=== PATIENT | female | born 1975 | race Caucasian/White ===

== ENCOUNTER 2017-08-03 17:31 | Inpatient (IN) | payer OTHER ==
[2017-08-03] MEDS ORDERED: Sodium Chloride 0.9% 1,000 ML IV STA (18:03)
--- NOTE | 2017-08-03 18:08 | ED PDOC ---
HPI: Psych/Substance Abuse Time Seen by Provider: 08/03/17 17:54 Chief Complaint (Nursing): Psychiatric Evaluation History Per: Patient Onset/Duration Of Symptoms: Unknown Current Symptoms Are (Timing): Still Present Suicide/Self Injury Attempted (Context): None Modifying Factor(s): None Severity: Moderate Associated Symptoms: Paranoia Additional Complaint(s): Feels like worms are coming out of her rectum assoc with lower abd pain. Denies NVD. No rectal bleeding. Has been trying to remove the worms from her rectum with her hands. Past Medical History Vital Signs: Last Vital Signs Temp 99.1 F 08/03/17 17:44 Pulse 125 H 08/03/17 17:44 Resp 20 08/03/17 17:44 BP 143/109 H 08/03/17 17:44 Pulse Ox - Medical History PMH: Bipolar Disorder Denies: Diabetes, Hepatitis, HIV, HTN, Seizures, Sexually Transmitted Disease - Family History Family History: States: Unknown Family Hx - Home Medications Home Medications: Ambulatory Orders Medication Instructions Recorded Unobtainable [Unobtainable] 06/17/14 - Allergies Allergies/Adverse Reactions: Allergies Allergy/AdvReac Type Severity Reaction Status Date / Time novacaine Allergy RASH Uncoded 08/03/17 17:48 Review of Systems ROS Statement: Except As Marked, All Systems Reviewed And Found Negative Constitutional: Negative for: Fever Gastrointestinal: Positive for: Abdominal Pain. Negative for: Vomiting, Diarrhea, Hematochezia Psych: Positive for: Psychosis Physical Exam - Reviewed Nursing Documentation Reviewed: Yes Vital Signs Reviewed: Yes - Physical Exam Appears: Positive for: Non-toxic, No Acute Distress Head Exam: Positive for: ATRAUMATIC, NORMAL INSPECTION, NORMOCEPHALIC Skin: Positive for: Normal Color, Warm, DRY Eye Exam: Positive for: EOMI, Normal appearance, PERRL ENT: Positive for: Other (Mucous membranes dry) Neck: Positive for: Normal, Painless ROM Cardiovascular/Chest: Positive for: Regular Rate, Rhythm Respiratory: Positive for: CNT, Normal Breath Sounds Gastrointestinal/Abdominal: Positive for: Normal Exam, Bowel Sounds, Soft Back: Positive for: Normal Inspection Rectal: Positive for: Other (No masses, no foreign body, no bleeding) Extremity: Positive for: Normal ROM Neurologic/Psych: Positive for: Alert, Oriented Disposition - Clinical Impression Clinical Impression: Bipolar 1 disorder - Patient ED Disposition Is Patient to be Admitted: Transfer of Care - Disposition Disposition: Transfer of Care Disposition Time: 19:03 Condition: FAIR Forms: [employer] (Welsh) Patient Signed Over To: Wyatt Knowles
--- NOTE | 2017-08-03 19:39 | ED PDOC ---
- Laboratory Results Result Diagrams: 08/03/17 20:56 08/03/17 20:56 Medical Decision Making Medical Decision Making: Time: 1899 --Patient was endorsed from Dr. Robison to me. --Pending crisis, labs, and reevaluation. Time: 2034 --Patient was evaluated by crisis and will be admitted for further treatment and stabilization and diagnosed for schizophrenia. --Pt stable for psychiatric admission. Time: 2048 --Admit to hospital routine: as inpatient in adult psychiatry for schizophrenia under the care of Dr. Melvin Foreman MD. Scribe Attestation: Documented by Jessica Lou, acting as a scribe for Wyatt Knowles MD. Provider Scribe Attestation: All medical record entries made by the Scribe were at my direction and personally dictated by me. I have reviewed the chart and agree that the record accurately reflects my personal performance of the history, physical exam, medical decision making, and the department course for this patient. I have also personally directed, reviewed, and agree with the discharge instructions and disposition. Disposition - Clinical Impression Clinical Impression: Bipolar disorder - POA Present On Arrival: None - Disposition Disposition: Admitted as In-Patient Disposition Time: 20:49 Condition: FAIR
[2017-08-03 21:02] LABS: BASO % 0.7 % (0.0-2.0); EOS % 0.6 % (0.0-4.0); HEMOGLOBIN 13.8 g/dL (12.0-16.0); LYMPH # 0.6 K/uL (1.0-4.3); LYMPH % 10.7 % (20.0-40.0); MEAN CELL VOLUME 85.2 fl (81.0-99.0); MEAN CORPUSCULAR HEMOGLOBIN 28.7 pg (27.0-31.0); MEAN CORPUSCULAR HGB CONC 33.7 g/dL (33.0-37.0); MEAN PLATELET VOLUME 7.4 fl (7.2-11.7); MONO # 0.4 K/uL (0.0-0.8); MONO % 6.4 % (0.0-10.0); NEUT # 4.9 K/uL (1.8-7.0); NEUT % 81.6 % (50.0-75.0); NRBC % 0.1 % (0.0-0.0); RBC 4.82 Mil/uL (3.80-5.20); RED CELL DISTRIBUTION WIDTH 15.1 % (11.5-14.5)
[2017-08-03 21:11] LABS: ALB/GLOB RATIO 1.2 (1.0-2.1); ALBUMIN 4.2 g/dL (3.5-5.0); ALT/SGPT 25 U/L (9-52); AST/SGOT 43 U/L (14-36); BLOOD UREA NITROGEN 24 mg/dl (7-17); CALCIUM 9.9 mg/dL (8.4-10.2); GFR AFRICAN-AMERICAN > 60; GFR NON-AFRICAN AMERICAN > 60
[2017-08-03 22:27] VITALS: O2SAT 99
[2017-08-04 00:18] LABS: BARBITURATES, UR NEGATIVE (NEGATIVE); BENZODIAZEPINES, UR NEGATIVE (NEGATIVE); OPIATES, UR NEGATIVE (NEGATIVE); PHENCYCLIDINE, UR NEGATIVE (NEGATIVE)
[2017-08-04] MEDS ORDERED: Magnesium Hydroxide Susp 30 ml UD PO PRN (00:45)
[2017-08-04] MEDS ORDERED: Alum-Mag Hydrox-Simethicone Susp (30 mL) PO PRN (00:45)
[2017-08-04] MEDS ORDERED: DiphenhydrAMINE 50 mg/ml Inj IM PRN ×2 (00:45→01:29)
--- NOTE | 2017-08-04 04:47 | PCM.BM ---
<Mohan North - Last Filed: 08/04/17 04:45> Treatment Plan Problems - Problems identified on initial assessmt Delusions Date Initiated: 08/04/17 (t) Time Initiated: 04:46 Assessment reference: NA Status: Active Alteration in emotional status Date Initiated: 08/04/17 Time Initiated: 04:46 Assessment reference: NA Status: Active Treatment assets and liabiliti Patient Assests: educated Patient Liabilities: live alone, poor support system, dietary restrictions, other (acute psychosis affecting food/fluid intake) - Milieu Protocol Maintain good personal hygiene: every other day Encourage regular showers, every shift Remind patient to perform daily oral care, every shift Assist patient to perform ADL's (requires assistance) Conduct patient checks and document Observation sheet: 1:1 Maintain personal safety: every shift Educate patient to report safety concerns to staff, every shift Monitor environment for contraband/sharps Medication safety: Monitor for expected outcome, potential side effects: every shift, Assess barriers to learning: every shift, Assess readiness for medication education: every shift <Prerna Encinas - Last Filed: 08/08/17 12:08> - Diagnosis (1) Schizophrenia Status: Acute Interventions: Medication management, Individual and group therapy, Psychoeducation 08/08/17 12:08 <Katelyn Banuelos - Last Filed: 08/08/17 16:10> Family Contact Family involvement: Patient does not wish Family/SO involvement Family contact: Patient declines to allow family contact at present Family contact comment: Pt refusing to provide collateral information. - Goals for Treatment Patient goals for treatment: Pt to be encouraged to attend activity and clinical groups 3-5x per week to decrease symptoms of paranoia, delusions and employ reality testing. Pt to be encouraged to participate in group milieu to develop coping skills to reduce psychiatric hospitalizations and further decompensation. Coordinate discharge resources needs by providing referral for psychiatric treatment follow up in the community. Discharge/Continuing Care - Education Needs Education Needs: Patient Medication, Patient Diagnosis/Disease Process, Patient Coping Skills, Patient Anger Management skills, Patient Placement options, Patient Community resources, Patient Uses of Medical Equipment, Patient Health Practices/Safety, Patient Personal Hygiene/Grooming, Patient Aftercare Safety Plan - Discharge Discharge Criteria: Tolerates medication w/o severe side effects, Free of paranoid thoughts, Normal sleep pattern, Ability to care for self, Reduction of target symptoms Discharge to:: Home, With Family - Additional Comments 08/08/17 15:48 Pt seen and discussed in team meeting. Reason for admission reviewed and discussed. Pt reported at home she was not eating, not drinking, not sleeping, and "felt like something was coming out of my butt." Pt reported she believes she saw warms coming out of her rectum. Pt reported this has been happening since March 2017. When asked what happened in March 2017 pt stated "everything just changed." Pt was guarded and evasive with her responses. Pt reported seeing her father then and "felt like he didn't like me very much" "more than the others." Pt also reported that in March 2017 she stopped working. 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 Pt reported she abruptly quit her job and has been living off her savings since then. Pt reported that she is unsure if her rent has been paid to date or not. Pt reported significant weight loss since March 2017. Pt reported she was 115lbs then and currently pt weights 82lbs. Pt reported hx of psychiatric treatment " on and off" but nothing current. Pt's medications reviewed and discussed.Pt's social and emotional support reviewed. Pt reported she would like "to hold off" on jingle writer contacting her family. Pt refused to sign release form for family. Treatment plan reviewed and discussed with pt. Pt refused to sign team attendance sheet stating "I would like to hold off on it." - Treatment Team Participation Discussed with Family/SO: No Was Patient/Family/SO present at Treatment Team Meeting: Yes
--- NOTE | 2017-08-04 08:36 | RAD ---
HISTORY: psych clearance COMPARISON: No prior. FINDINGS: LUNGS: No active pulmonary disease. PLEURA: No significant pleural effusion identified, no pneumothorax apparent. CARDIOVASCULAR: Normal. OSSEOUS STRUCTURES: No significant abnormalities. VISUALIZED UPPER ABDOMEN: Normal. OTHER FINDINGS: None. IMPRESSION: No active disease.
--- NOTE | 2017-08-04 10:34 | CARD ---
APPROVED REPORT EKG Measurement Heart [id number] <Conclusion> Sinus tachycardia Possible Left atrial enlargement Nonspecific T wave abnormality Abnormal ECG
--- NOTE | 2017-08-04 20:19 | CP.PCM.CON ---
History of Present Illness - History of Present Illness History of Present Illness: Patient severely psychotic and uncooperative. Refused to talk with and refused exam. Past Patient History - Tetanus Immunizations Tetanus Immunization: Unknown - Past Social History Smoking Status: Unknown If Ever Smoked - CARDIAC Hx Cardiac Disorders: No (denied) - PULMONARY Hx Respiratory Disorders: No (denied) - NEUROLOGICAL Hx Neurological Disorder: No (denied) - HEENT Hx HEENT Problems: No (denied) - RENAL Hx Chronic Kidney Disease: No (denied) - ENDOCRINE/METABOLIC Hx Endocrine Disorders: No (denied) - HEMATOLOGICAL/ONCOLOGICAL Hx Blood Disorders: No (denied) - INTEGUMENTARY Hx Dermatological Problems: Yes - MUSCULOSKELETAL/RHEUMATOLOGICAL Hx Musculoskeletal Disorders: No (denied) - GASTROINTESTINAL Hx Gastrointestinal Disorders: Yes Hx Diarrhea: Yes (soft stool) Other/Comment: fecal incontinence,and, she is placing her fingers into her rectum and then smearing feces on upper lip to smell(?) then placing feces into mouth. She denied afer she was observed doing this. - GENITOURINARY/GYNECOLOGICAL Hx Genitourinary Disorders: No (denied) - PSYCHIATRIC Hx Psychophysiologic Disorder: Yes - SURGICAL HISTORY Hx Surgeries: No (denied) - ANESTHESIA Hx Anesthesia: No Hx Anesthesia Reactions: No Hx Malignant Hyperthermia: No Meds Allergies/Adverse Reactions: Allergies Allergy/AdvReac Type Severity Reaction Status Date / Time novacaine Allergy RASH Uncoded 08/03/17 17:48 - Medications Medications: Current Medications Acetaminophen (Tylenol 325mg Tab) 650 mg PO Q4 PRN PRN Reason: T>101;headache;Pain 1-7 Al Hydrox/Mg Hydrox/Simethicone (Maalox Plus 30 Ml) 30 ml PO Q4 PRN PRN Reason: Dyspepsia Diphenhydramine HCl (Benadryl) 25 mg IM Q6 PRN PRN Reason: Extrapyramidal S/S Unable PO Last Admin: 08/04/17 01:45 Dose: 25 mg Diphenhydramine HCl (Benadryl) 25 mg PO Q6 PRN PRN Reason: Extrapyramidal Symptoms Haloperidol (Haldol) 2 mg PO Q4 PRN PRN Reason: Agitation Haloperidol Lactate (Haldol) 2 mg IM Q4 PRN PRN Reason: Agitation, Unable to Take PO Last Admin: 08/04/17 01:45 Dose: 2 mg Lorazepam (Ativan) 1 mg IM Q4 PRN PRN Reason: Anxiety/Agitation,Unable PO Last Admin: 08/04/17 01:45 Dose: 1 mg Lorazepam (Ativan) 1 mg PO Q4 PRN PRN Reason: Anxiety/Agitation Magnesium Hydroxide (Milk Of Magnesia) 30 ml PO HS PRN PRN Reason: Constipation Results - Vital Signs Recent Vital Signs: Last Vital Signs Temp 97.5 F L 08/04/17 17:00 Pulse 122 H 08/04/17 17:00 Resp 20 08/04/17 17:00 BP 108/74 08/04/17 17:00 Pulse Ox 99 08/03/17 22:27 - Labs Result Diagrams: 08/03/17 20:56 08/03/17 20:56 Labs: Laboratory Results - last 24 hr 08/03/17 08/03/17 08/03/17 20:40 20:56 20:56 WBC 6.0 RBC 4.82 Hgb 13.8 Hct 41.1 MCV 85.2 MCH 28.7 MCHC 33.7 RDW 15.1 H Plt Count 292 MPV 7.4 Neut % (Auto) 81.6 H Lymph % (Auto) 10.7 L [place] % (Auto) 6.4 Eos % (Auto) 0.6 Baso % (Auto) 0.7 Neut # (Auto) 4.9 Lymph # (Auto) 0.6 L [place] # (Auto) 0.4 Eos # (Auto) 0.0 Baso # (Auto) 0.0 Sodium 152 H Potassium 4.1 Chloride 108 H Carbon Dioxide 24 Anion Gap 24 H BUN 24 H Creatinine 0.9 Est GFR ( Amer) > 60 Est GFR (Non-Af Amer) > 60 POC Glucose (mg/dL) 108 Random Glucose 116 H Calcium 9.9 Total Bilirubin 1.7 H AST 43 H ALT 25 Alkaline Phosphatase 71 Total Protein 7.6 Albumin 4.2 Globulin 3.4 Albumin/Globulin Ratio 1.2 Urine Opiates Screen Urine Methadone Screen Ur Barbiturates Screen Ur Phencyclidine Scrn Ur Amphetamines Screen U Benzodiazepines Scrn U Oth Cocaine Metabols U Cannabinoids Screen Alcohol, Quantitative < 10 08/03/17 21:55 WBC RBC Hgb Hct MCV MCH MCHC RDW Plt Count MPV Neut % (Auto) Lymph % (Auto) [place] % (Auto) Eos % (Auto) Baso % (Auto) Neut # (Auto) Lymph # (Auto) [place] # (Auto) Eos # (Auto) Baso # (Auto) Sodium Potassium Chloride Carbon Dioxide Anion Gap BUN Creatinine Est GFR ( Amer) Est GFR (Non-Af Amer) POC Glucose (mg/dL) Random Glucose Calcium Total Bilirubin AST ALT Alkaline Phosphatase Total Protein Albumin Globulin Albumin/Globulin Ratio Urine Opiates Screen Negative Urine Methadone Screen Negative Ur Barbiturates Screen Negative Ur Phencyclidine Scrn Negative Ur Amphetamines Screen Negative U Benzodiazepines Scrn Negative U Oth Cocaine Metabols Negative U Cannabinoids Screen Negative Alcohol, Quantitative
--- NOTE | 2017-08-05 18:22 | PCM.PSYCH ---
Initial Psychiatric Evaluation - Initial Psychiatric Evaluation Chief Complaint (in patient's own words): late note for [id number] pt admitted to 3 via er-pt presented to [facility] believing that there are worms in her recum and was trying to dig them out , pulling stool out presented to [facility] required to have staff assist with bathing, appetite . rrequires total care Patient's Reaction to Hospitalization: voluntary admission History of Present Illness and Precipitating Events: presented to er with changes in behavior believing that worms were in rectum and was digging stool out Current Medications: Active Medications Generic Name Dose Route Start Last Admin Trade Name Freq PRN Reason Stop Dose Admin Acetaminophen 650 mg 08/04/17 00:45 Tylenol 325mg Tab PO Q4 PRN T>101;headache;Pain 1-7 Al Hydrox/Mg Hydrox/Simethicone 30 ml 08/04/17 00:45 Maalox Plus 30 Ml PO Q4 PRN Dyspepsia Diphenhydramine HCl 25 mg 08/04/17 01:29 08/04/17 01:45 Benadryl IM 25 mg Q6 PRN Administration Extrapyramidal S/S Unable PO Diphenhydramine HCl 25 mg 08/04/17 01:29 Benadryl PO Q6 PRN Extrapyramidal Symptoms Haloperidol 2 mg 08/04/17 01:29 Haldol PO Q4 PRN Agitation Haloperidol Lactate 2 mg 08/04/17 01:29 08/04/17 01:45 Haldol IM 2 mg Q4 PRN Administration Agitation, Unable to Take PO Lorazepam 1 mg 08/04/17 01:29 08/04/17 01:45 Ativan IM 1 mg Q4 PRN Administration Anxiety/Agitation,Unable PO Lorazepam 1 mg 08/04/17 01:29 Ativan PO Q4 PRN Anxiety/Agitation Magnesium Hydroxide 30 ml 08/04/17 00:45 Milk Of Magnesia PO HS PRN Constipation Past Psychiatric History - Past Psychiatric History Pertinent Medical Hx (Current Medical&Sleep Prob, Allergies): Allergies Allergy/AdvReac Type Severity Reaction Status Date / Time novacaine Allergy RASH Uncoded 08/03/17 17:48 Unobtainable [Unobtainable] 06/17/14 Review of Systems - Psychiatric Psychiatric: Abnormal Sleep Pattern Additional comments: delusions paranoia Mental Status Examination - Personal Presentation Personal Presentation: Looks older than stated age - Affect Affect: Constricted - Motor Activity Motor Activity: Psychomotor Retardation - Reliability in Providing Information Reliability in Providing Information: Poor, due to alteration in thoughts - Formal Thought Process Formal Thought Process: Delusions, Paranoia - Cognitive Functions Judgement: Imparied, as evidence by: Other - Risk Risk: Self-mutilation, Diminished functioning - Strength & Assets Inventory Additional comments: signed in - Limitations Additional comments: paranoia self injurous behavior DSM 5 DX - DSM 5 DSM 5 Diagnosis: schizophrenia paranoid type - Recommended/Plan of Treatment Treatment Recommendations and Plan of Treatment: admission per attending vital signs and visual assessment per protocol and per status\ hospitalist consult vital signs per protocol-pt receiving prn haldol will attempt tomorrow to gain further information if pt is more talkative discharge planning in progress Projected ELOS: 5-7 days Discharge Plan and Discharge Criteria: guarded - Smoking Cessation Smoking Cessation Initiated: No Reason for not providing: no indication at time of admission
--- NOTE | 2017-08-05 18:33 | PCM.PYCHPN ---
Psychiatric Progress Note - Psychiatric Progress Note Patient seen today, length of contact: chart reviewed case discussed with team Patient Chief Complaint: pt requires assistance with adls requires some assistance with ambulation, pt is paranoid believing that staff is putting urine medicine, irritable Problems Identified/Issues Discussed: alteration in cognition Medical Problems: per chart Diagnostic Results: per psychiatry per medicine per nursing per social work per recreational therapy DSM 5 Symptoms Update: alteration in cognition alteration in self care Medication Change: Yes (risp mtab 1mg po am and 2mg po hs) Medical Record Reviewed: Yes Consults ordered or reviewed: pt being followed by hospitalist Mental Status Examination - Cognitive Function Orientation: Person Memory: Impaired Attention: Poor Concentration: Poor Association: Loose Fund of Knowledge: Poor Decription of patient's judgement and insights: poor - Affect Affect: Constricted - Formal Thought Process Formal Thought Process: Delusions, Paranoia - Homicidal Ideation Homicidal Ideation: No Goal/Treatment Plan - Goal/Treatment Plan Progress Toward Problem(s) and Goals/Treatment Plan: admission per attending vital signs and visual assessment per protocol and per status\ hospitalist consult risperdal mtab in am 1mg and 2mg po hs-attempt exposure if tolerated possible long acting injectables will attempt tomorrow to gain further information if pt is more talkative discharge planning in progress Estimated Date of D/C: 08/13/17 - Smoking Cessation Smoking Cessation Initiated: No Reason for not providing: pt defers
[2017-08-05] MEDS: Risperidone M TAB 2 MG PO SCH (23:30)
[2017-08-06] MEDS: Risperidone M tab 1 MG PO SCH (08:59)
[2017-08-06 10:01] LABS: HEMOGLOBIN 12.8 g/dL (12.0-16.0); MEAN CELL VOLUME 85.1 fl (81.0-99.0); MEAN CORPUSCULAR HEMOGLOBIN 28.9 pg (27.0-31.0); RBC 4.43 Mil/uL (3.80-5.20); RED CELL DISTRIBUTION WIDTH 15.3 % (11.5-14.5); WHITE BLOOD COUNT 5.1 K/uL (4.8-10.8)
[2017-08-06 10:29] LABS: ALB/GLOB RATIO 1.1 (1.0-2.1); ALBUMIN 3.6 g/dL (3.5-5.0); ALT/SGPT 29 U/L (9-52); AST/SGOT 50 U/L (14-36); BLOOD UREA NITROGEN 14 mg/dl (7-17); CALCIUM 9.2 mg/dL (8.4-10.2); GFR AFRICAN-AMERICAN > 60; GFR NON-AFRICAN AMERICAN > 60; HDL CHOLESTEROL 45 MG/DL (30-70)
[2017-08-06 10:32] LABS: LDL CHOLESTEROL 100 mg/dL (0-129)
[2017-08-06 10:35] LABS: T3 UPTAKE 40.3 % (23.0-41.0); T4 9.78 ug/dl (5.5-11.0)
--- NOTE | 2017-08-06 13:24 | PCM.PYCHPN ---
Psychiatric Progress Note - Psychiatric Progress Note Patient seen today, length of contact: Patient evaluated, case discussed with team, chart reviewed Patient Chief Complaint: "I'm sensitive." Problems Identified/Issues Discussed: Patient reports that she is concerned about the products used in the hospital and has various somatic concerns about her body being too sensitive to lotions and soaps. She continues to be concerned about having a body worm, but did not want to discuss it. She has to be encouraged by staff to eat and continues to have a poor appetite. She has thought blocking at times and seems to have difficulty with concentrating during the conversation. Medication Change: Yes (Risperdal increased to 1 mg PO AM/ 2 mg PO HS) Medical Record Reviewed: Yes Consults ordered or reviewed: Medicine consult Mental Status Examination - Cognitive Function Orientation: Person, Place, Situation Memory: Impaired Attention: Poor Concentration: Poor Association: WNL Fund of Knowledge: WN Decription of patient's judgement and insights: Poor I/J - Mood Mood: Anxious - Affect Affect: Constricted - Speech Speech: Soft - Formal Thought Process Formal Thought Process: Delusions, Paranoia Psychotic Thoughts and Behaviors: +Delusions/paranoia/somatic preoccupation - Suicidal Ideation Suicidal Ideation: No - Homicidal Ideation Homicidal Ideation: No Goal/Treatment Plan - Goal/Treatment Plan Need for Continued Stay: Remain at risks for inpatient hospitalization, Discharge may exacerbated symptoms, Severe functional impairment Progress Toward Problem(s) and Goals/Treatment Plan: Schizophrenia -Increase Risperdal to 1 mg PO AM/ 2 mg PO HS -Continue 1:1 for safety -Individual and group therapy -Obtain collateral history -Psychoeducation -Dietitian referral -Disposition planning Estimated Date of D/C: 08/13/17
[2017-08-06] MEDS: Risperidone M TAB 2 MG PO SCH (21:24)
[2017-08-07] MEDS: Risperidone M tab 1 MG PO SCH (08:42)
--- NOTE | 2017-08-07 08:56 | PCM.PYCHPN ---
Psychiatric Progress Note - Psychiatric Progress Note Patient seen today, length of contact: Patient evaluated, case discussed with team, chart reviewed Patient Chief Complaint: Patient unwilling to talk w/ ad writer at this time due to acute psychosis Problems Identified/Issues Discussed: Patient continues to be acutely psychotic and bizarre. Today she is refusing to talk to the ad writer or make eye contact. She just shakes her head "yes" or "no" at times. She continues to need 1:1 for safety. Patient is encouraged to eat and is helped by staff w/ meals. She also has to be encouraged to shower. Medication Change: Yes (Increase Risperdal to 2 mg PO Q12, starting tomorrow AM) Medical Record Reviewed: Yes Consults ordered or reviewed: Medicine consult, Dietitian referral, PT Mental Status Examination - Cognitive Function Orientation: Person, Place, Situation Memory: Impaired Attention: Poor Concentration: Poor Association: WNL Fund of Knowledge: WNL Decription of patient's judgement and insights: Poor I/J - Mood Mood: Anxious - Affect Affect: Constricted - Speech Speech: Soft - Formal Thought Process Formal Thought Process: Delusions, Paranoia Psychotic Thoughts and Behaviors: +Delusions/paranoia/somatic preoccupation - Suicidal Ideation Suicidal Ideation: No - Homicidal Ideation Homicidal Ideation: No Goal/Treatment Plan - Goal/Treatment Plan Need for Continued Stay: Remain at risks for inpatient hospitalization, Discharge may exacerbated symptoms, Severe functional impairment Progress Toward Problem(s) and Goals/Treatment Plan: Schizophrenia; patient needs acute inpatient hospitalization for treatment and safety -Increase Risperdal to 2 mg PO Q12 hr starting tomorrow AM -Continue 1:1 for safety -Individual and group therapy -Obtain collateral history -Psychoeducation -Dietitian referral -Physical Therapy -Disposition planning Estimated Date of D/C: 08/14/17
[2017-08-07 12:36] VITALS: BMI 16.1
[2017-08-07] MEDS ORDERED: Risperidone M TAB 2 MG PO SCH (21:00)
--- NOTE | 2017-08-08 12:11 | PCM.PYCHPN ---
Psychiatric Progress Note - Psychiatric Progress Note Patient seen today, length of contact: Patient evaluated, case discussed with team, chart reviewed Patient Chief Complaint: "I was having delusions." Problems Identified/Issues Discussed: Patient is more talkative. She eats when encouraged by staff. She also took a shower today with staff encouragement. She has improved insight and is able to state that she has been delusional in the past. She continues to be preoccupied about having a worm in her body. She is aware that she has lost a significant amount of weight. Medication Change: Yes (Rispedal changed to 3 mg PO HS) Medical Record Reviewed: Yes Consults ordered or reviewed: Medicine consult, Dietitian referral, PT Mental Status Examination - Cognitive Function Orientation: Person, Place, Situation, Time Memory: Impaired Attention: WNL Concentration: WNL Association: WNL Fund of Knowledge: WN Decription of patient's judgement and insights: Improving I/J - Mood Mood: Anxious - Affect Affect: Constricted - Speech Speech: Soft - Formal Thought Process Formal Thought Process: Delusions, Paranoia Psychotic Thoughts and Behaviors: +Delusions/paranoia/somatic preoccupation - Suicidal Ideation Suicidal Ideation: No - Homicidal Ideation Homicidal Ideation: No Goal/Treatment Plan - Goal/Treatment Plan Need for Continued Stay: Remain at risks for inpatient hospitalization, Discharge may exacerbated symptoms, Severe functional impairment Progress Toward Problem(s) and Goals/Treatment Plan: Schizophrenia; patient needs acute inpatient hospitalization for treatment and safety -Risperdal 3 mg PO HS -Continue 1:1 for safety -Individual and group therapy -Obtain collateral history -Psychoeducation -Dietitian referral -Physical Therapy -Disposition planning Estimated Date of D/C: 08/14/17
--- NOTE | 2017-08-09 10:37 | PCM.PYCHPN ---
Psychiatric Progress Note - Psychiatric Progress Note Patient seen today, length of contact: Patient evaluated, case discussed with team, chart reviewed Patient Chief Complaint: "I was having delusions." Problems Identified/Issues Discussed: Patient continues to be psychotic/ delusions. She is unwilling to talk with the fiction and nonfiction prose writer this morning for unclear reasons, likely secondary to acute psychosis. She will not eat unless encouraged and fed by staff. Patient is being provided food as well as supplements. Medication Change: Yes (Increase Risperdal to 4 mg PO HS) Medical Record Reviewed: Yes Consults ordered or reviewed: Medicine consult, Dietitian referral, PT Mental Status Examination - Cognitive Function Orientation: Person, Place, Situation, Time Memory: Impaired Attention: WNL Concentration: WNL Association: WNL Fund of Knowledge: [facility] Decription of patient's judgement and insights: Poor I/J - Mood Mood: Anxious - Affect Affect: Constricted - Speech Speech: Soft - Formal Thought Process Formal Thought Process: Delusions, Paranoia Psychotic Thoughts and Behaviors: +Delusions/paranoia/somatic preoccupation - Suicidal Ideation Suicidal Ideation: No - Homicidal Ideation Homicidal Ideation: No Goal/Treatment Plan - Goal/Treatment Plan Need for Continued Stay: Remain at risks for inpatient hospitalization, Discharge may exacerbated symptoms, Severe functional impairment Progress Toward Problem(s) and Goals/Treatment Plan: Schizophrenia; patient needs acute inpatient hospitalization for treatment and safety -Increase Risperdal to 4 mg PO HS -Continue 1:1 for safety -Individual and group therapy -Obtain collateral history -Psychoeducation -Dietitian referral -Physical Therapy -Disposition planning Estimated Date of D/C: 08/15/17
[2017-08-09] MEDS: Risperidone M TAB 2 MG PO SCH (21:19)
--- NOTE | 2017-08-10 13:02 | PCM.PYCHPN ---
Psychiatric Progress Note - Psychiatric Progress Note Patient seen today, length of contact: Patient evaluated, case discussed with team, chart reviewed Patient Chief Complaint: "I was having delusions." Problems Identified/Issues Discussed: Patient continues to be psychotic/ delusional/ paranoid. She is unwilling to talk with the doctor again, but does make eye contact and sometimes uses hand gestures. She will not eat unless encouraged and fed by staff. Medication Change: No Medical Record Reviewed: Yes Consults ordered or reviewed: Medicine consult, Dietitian referral, PT Mental Status Examination - Cognitive Function Orientation: Person, Place, Situation, Time Memory: Impaired Attention: WNL Concentration: WNL Association: WNL Fund of Knowledge: [facility] Decription of patient's judgement and insights: Poor I/J - Mood Mood: Anxious - Affect Affect: Constricted - Speech Speech: Soft - Formal Thought Process Formal Thought Process: Delusions, Paranoia Psychotic Thoughts and Behaviors: +Delusions/paranoia/somatic preoccupation - Suicidal Ideation Suicidal Ideation: No - Homicidal Ideation Homicidal Ideation: No Goal/Treatment Plan - Goal/Treatment Plan Need for Continued Stay: Remain at risks for inpatient hospitalization, Discharge may exacerbated symptoms, Severe functional impairment Progress Toward Problem(s) and Goals/Treatment Plan: Schizophrenia; patient needs acute inpatient hospitalization for treatment and safety -Continue Risperdal 4 mg PO HS -Continue 1:1 for safety -Individual and group therapy -Obtain collateral history -Psychoeducation -Dietitian referral -Physical Therapy -Disposition planning Estimated Date of D/C: 08/17/17
[2017-08-10] MEDS: Risperidone M TAB 2 MG PO SCH (21:08)
[2017-08-11] MEDS ORDERED: risperiDONE Consta 25mg/2ml Syringe IM ONE (09:00)
--- NOTE | 2017-08-11 09:19 | PCM.PYCHPN ---
Psychiatric Progress Note - Psychiatric Progress Note Patient seen today, length of contact: Patient evaluated, case discussed with team, chart reviewed Patient Chief Complaint: "I was having delusions." Problems Identified/Issues Discussed: Patient continues to be psychotic/ delusional/ paranoid. She was more agreeable to talking today. She continues to have poor insight into the severity of her illness. Patient is eating more with staff encouragement. Psychoeducation was provided on the importance of compliance with treatment and medications. Patient was agreeable to taking Risperdal consta 25 mg IM once today. No current adverse effects to medications reported. Medication Change: Yes (Risperdal Consta 25 mg IM once today) Medical Record Reviewed: Yes Consults ordered or reviewed: Medicine consult, Dietitian referral, PT Mental Status Examination - Cognitive Function Orientation: Person, Place, Situation, Time Memory: Impaired Attention: WNL Concentration: WNL Association: WN Fund of Knowledge: [facility] Decription of patient's judgement and insights: Poor I/J - Mood Mood: Anxious - Affect Affect: Constricted - Speech Speech: Soft - Formal Thought Process Formal Thought Process: Delusions, Paranoia Psychotic Thoughts and Behaviors: +Delusions/paranoia/somatic preoccupation - Suicidal Ideation Suicidal Ideation: No - Homicidal Ideation Homicidal Ideation: No Goal/Treatment Plan - Goal/Treatment Plan Need for Continued Stay: Remain at risks for inpatient hospitalization, Discharge may exacerbated symptoms, Severe functional impairment Progress Toward Problem(s) and Goals/Treatment Plan: Schizophrenia; patient needs acute inpatient hospitalization for treatment and safety -Continue Risperdal 4 mg PO HS -Risperdal Consta 25 mg IM once given on 08/11/17 -Continue 1:1 for safety -Individual and group therapy -Obtain collateral history -Psychoeducation -Dietitian referral -Physical Therapy -Disposition planning Estimated Date of D/C: 08/17/17
[2017-08-11] MEDS: Risperidone M TAB 2 MG PO SCH (21:11)
--- NOTE | 2017-08-12 10:10 | PCM.PYCHPN ---
Psychiatric Progress Note - Psychiatric Progress Note Patient seen today, length of contact: Patient evaluated, case discussed with team, chart reviewed Patient Chief Complaint: "I was having delusions." Problems Identified/Issues Discussed: Patient continues to be psychotic/ delusional/ paranoid. She continues to be preoccupied about having worms in her body and she is afraid to eat because she is worried they will eat the food and grow. She continues to have somatic preoccupations and is concerned that she has constipation despite having a bowel movement this morning. She continues to have poor insight into the severity of her illness. Patient is eating more with staff encouragement. Psychoeducation was provided on the importance of compliance with treatment and medications. No current adverse effects to medications reported. Medication Change: No Medical Record Reviewed: Yes Consults ordered or reviewed: Medicine consult, Dietitian referral, PT Mental Status Examination - Cognitive Function Orientation: Person, Place, Situation, Time Memory: Impaired Attention: WNL Concentration: WNL Association: WNL Fund of Knowledge: WN Decription of patient's judgement and insights: Poor I/J - Mood Mood: Anxious - Affect Affect: Constricted - Speech Speech: Soft - Formal Thought Process Formal Thought Process: Delusions, Paranoia Psychotic Thoughts and Behaviors: +Delusions/paranoia/somatic preoccupation - Suicidal Ideation Suicidal Ideation: No - Homicidal Ideation Homicidal Ideation: No Goal/Treatment Plan - Goal/Treatment Plan Need for Continued Stay: Remain at risks for inpatient hospitalization, Discharge may exacerbated symptoms, Severe functional impairment Progress Toward Problem(s) and Goals/Treatment Plan: Schizophrenia; patient needs acute inpatient hospitalization for treatment and safety -Continue Risperdal 4 mg PO HS -Risperdal Consta 25 mg IM once given on 08/11/17 -1:1 discontinued -Individual and group therapy -Obtain collateral history -Psychoeducation -Dietitian referral -Physical Therapy -Disposition planning Estimated Date of D/C: 08/17/17
[2017-08-12] MEDS: Risperidone M TAB 2 MG PO SCH (21:20)
[2017-08-13] MEDS: Lactulose 10 gm/15 ml Syrup PO PRN (09:41)
--- NOTE | 2017-08-13 11:53 | PCM.PYCHPN ---
Psychiatric Progress Note - Psychiatric Progress Note Patient seen today, length of contact: Patient evaluated, case discussed with team, chart reviewed Patient Chief Complaint: "I was having delusions." Problems Identified/Issues Discussed: Patient continues to be delusional/ paranoid and somatically preoccupied. She continues to have poor insight into the severity of her illness. Patient is eating more with staff encouragement. Psychoeducation was provided on the importance of compliance with treatment and medications. No current adverse effects to medications reported. Medication Change: No Medical Record Reviewed: Yes Consults ordered or reviewed: Medicine consult, Dietitian referral, PT Mental Status Examination - Cognitive Function Orientation: Person, Place, Situation, Time Memory: Impaired Attention: WNL Concentration: WNL Association: WNL Fund of Knowledge: [facility] Decription of patient's judgement and insights: Poor I/J - Mood Mood: Anxious - Affect Affect: Constricted - Speech Speech: Soft - Formal Thought Process Formal Thought Process: Delusions, Paranoia Psychotic Thoughts and Behaviors: +Delusions/paranoia/somatic preoccupation - Suicidal Ideation Suicidal Ideation: No - Homicidal Ideation Homicidal Ideation: No Goal/Treatment Plan - Goal/Treatment Plan Need for Continued Stay: Remain at risks for inpatient hospitalization, Discharge may exacerbated symptoms, Severe functional impairment Progress Toward Problem(s) and Goals/Treatment Plan: Schizophrenia; patient needs acute inpatient hospitalization for treatment and safety -Continue Risperdal 4 mg PO HS -Risperdal Consta 25 mg IM once given on 08/11/17 -Individual and group therapy -Obtain collateral history -Psychoeducation -Dietitian referral -Physical Therapy -Disposition planning Estimated Date of D/C: 08/17/17
[2017-08-13] MEDS: Risperidone M TAB 2 MG PO SCH (21:24)
--- NOTE | 2017-08-14 10:56 | PCM.PYCHPN ---
Psychiatric Progress Note - Psychiatric Progress Note Patient seen today, length of contact: Patient evaluated, case discussed with team, chart reviewed Patient Chief Complaint: "I was having delusions." Problems Identified/Issues Discussed: Patient continues to be delusional/ paranoid and somatically preoccupied. She continues to have poor insight into the severity of her illness. She will only eat if encouraged by staff. She denies acute concerns about having worms in her body, but is now concerned about having constipation and is also bizarrely concerned that she looks much older than her age. No current adverse effects to medications reported. Medication Change: Yes (Increase Risperdal) Medical Record Reviewed: Yes Consults ordered or reviewed: Medicine consult, Dietitian referral, PT Mental Status Examination - Cognitive Function Orientation: Person, Place, Situation, Time Memory: Impaired Attention: WNL Concentration: WNL Association: WNL Fund of Knowledge: [facility] Decription of patient's judgement and insights: Poor I/J - Mood Mood: Anxious - Affect Affect: Constricted - Speech Speech: Soft - Formal Thought Process Formal Thought Process: Delusions, Paranoia, Loosening of associations Psychotic Thoughts and Behaviors: +Delusions/paranoia/somatic preoccupation - Suicidal Ideation Suicidal Ideation: No - Homicidal Ideation Homicidal Ideation: No Goal/Treatment Plan - Goal/Treatment Plan Need for Continued Stay: Remain at risks for inpatient hospitalization, Discharge may exacerbated symptoms, Severe functional impairment Progress Toward Problem(s) and Goals/Treatment Plan: Schizophrenia; patient needs acute inpatient hospitalization for treatment and safety -Increase Risperdal to 1 mg PO AM/ 4 mg PO HS -Risperdal Consta 25 mg IM once given on 08/11/17 -Individual and group therapy -Obtain collateral history -Psychoeducation -Dietitian referral -Physical Therapy -Disposition planning Estimated Date of D/C: 08/21/17
[2017-08-14] MEDS: Risperidone M TAB 2 MG PO SCH (21:29)
--- NOTE | 2017-08-15 11:26 | PCM.PYCHPN ---
Psychiatric Progress Note - Psychiatric Progress Note Patient seen today, length of contact: Patient evaluated, case discussed with team, chart reviewed Patient Chief Complaint: "I'm constipated." Problems Identified/Issues Discussed: Patient continues to be preoccupied that she is constipated, despite having daily bowel movements. She states that she feels the feces in her body. Patient continues to be delusional/ paranoid and somatically preoccupied. She continues to have poor insight into the severity of her illness. She will only eat if encouraged by staff. She is bizarre and tangential. She refused to increase the Risperdal today and states that she does not want to continue taking the Risperdal consta. No current adverse effects to medications reported. Medication Change: No Medical Record Reviewed: Yes Consults ordered or reviewed: Medicine consult, Dietitian referral, PT Mental Status Examination - Cognitive Function Orientation: Person, Place, Situation, Time Memory: Impaired Attention: WNL Concentration: WNL Association: WNL Fund of Knowledge: WN Decription of patient's judgement and insights: Poor I/J - Mood Mood: Depressed, Anxious - Affect Affect: Constricted - Speech Speech: Soft - Formal Thought Process Formal Thought Process: Delusions, Paranoia, Loosening of associations, Flight of ideas, Circumstantial Psychotic Thoughts and Behaviors: +Delusions/paranoia/somatic preoccupation - Suicidal Ideation Suicidal Ideation: No - Homicidal Ideation Homicidal Ideation: No Goal/Treatment Plan - Goal/Treatment Plan Need for Continued Stay: Remain at risks for inpatient hospitalization, Discharge may exacerbated symptoms, Severe functional impairment Progress Toward Problem(s) and Goals/Treatment Plan: Schizophrenia; patient needs acute inpatient hospitalization for treatment and safety -Patient refusing to increase Risperdal at this time, will attempt tomorrow to increase Risperdal to 1 mg PO AM/ 4 mg PO HS -Risperdal Consta 25 mg IM once given on 08/11/17; patient refusing to continue w / Consta at this time -Individual and group therapy -Obtain collateral history -Psychoeducation -Dietitian referral -Physical Therapy -Disposition planning Estimated Date of D/C: 08/21/17
--- NOTE | 2017-08-15 15:18 | PCM.BM ---
Treatment Plan Problems - Problems identified on initial assessmt Delusions Date Initiated: 08/04/17 (t) Time Initiated: :46 Assessment reference: NA Status: Active Alteration in emotional status Date Initiated: 08/04/17 Time Initiated: 04:46 Assessment reference: NA Status: Active Treatment assets and liabiliti Patient Assests: educated Patient Liabilities: live alone, poor support system, dietary restrictions, other (acute psychosis affecting food/fluid intake) - Milieu Protocol Maintain good personal hygiene: every other day Encourage regular showers, every shift Remind patient to perform daily oral care, every shift Assist patient to perform ADL's (requires assistance) Conduct patient checks and document Observation sheet: 1:1 Maintain personal safety: every shift Educate patient to report safety concerns to staff, every shift Monitor environment for contraband/sharps Medication safety: Monitor for expected outcome, potential side effects: every shift, Assess barriers to learning: every shift, Assess readiness for medication education: every shift Milieu Narrative: Schizophrenia; patient needs acute inpatient hospitalization for treatment and safety -Patient refusing to increase Risperdal at this time, will attempt tomorrow to increase Risperdal to 1 mg PO AM/ 4 mg PO HS -Risperdal Consta 25 mg IM once given on 08/11/17; patient refusing to continue w / Consta at this time -Individual and group therapy -Obtain collateral history -Psychoeducation -Dietitian referral -Physical Therapy -Disposition planning Family Contact Family involvement: Patient does not wish Family/SO involvement Family contact: Patient declines to allow family contact at present Family contact comment: Pt refusing to provide collateral information. - Goals for Treatment Patient goals for treatment: Pt to be encouraged to attend activity and clinical groups 3-5x per week to decrease symptoms of paranoia, delusions and employ reality testing. Pt to be encouraged to participate in group milieu to develop coping skills to reduce psychiatric hospitalizations and further decompensation. Coordinate discharge resources needs by providing referral for psychiatric treatment follow up in the community. Discharge/Continuing Care - Education Needs Education Needs: Patient Medication, Patient Diagnosis/Disease Process, Patient Coping Skills, Patient Anger Management skills, Patient Placement options, Patient Community resources, Patient Uses of Medical Equipment, Patient Health Practices/Safety, Patient Personal Hygiene/Grooming, Patient Aftercare Safety Plan - Discharge Discharge Criteria: Tolerates medication w/o severe side effects, Free of paranoid thoughts, Normal sleep pattern, Ability to care for self, Reduction of target symptoms Discharge to:: Home, With Family - Additional Comments 08/08/17 15:48 Pt seen and discussed in team meeting. Reason for admission reviewed and discussed. Pt reported at home she was not eating, not drinking, not sleeping, and "felt like something was coming out of my butt." Pt reported she believes she saw warms coming out of her rectum. Pt reported this has been happening since March 2017. When asked what happened in March 2017 pt stated "everything just changed." Pt was guarded and evasive with her responses. Pt reported seeing her father then and "felt like he didn't like me very much" "more than the others." Pt also reported that in March 2017 she stopped working. 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 Pt reported she abruptly quit her job and has been living off her savings since then. Pt reported that she is unsure if her rent has been paid to date or not. Pt reported significant weight loss since March 2017. Pt reported she was 115lbs then and currently pt weights 82lbs. Pt reported hx of psychiatric treatment " on and off" but nothing current. Pt's medications reviewed and discussed.Pt's social and emotional support reviewed. Pt reported she would like "to hold off" on credit underwriter contacting her family. Pt refused to sign release form for family. Treatment plan reviewed and discussed with pt. Pt refused to sign team attendance sheet stating "I would like to hold off on it." - Treatment Team Participation Patient/Family/SO Statement: Schizophrenia; patient needs acute inpatient hospitalization for treatment and safety -Patient refusing to increase Risperdal at this time, will attempt tomorrow to increase Risperdal to 1 mg PO AM/ 4 mg PO HS -Risperdal Consta 25 mg IM once given on 08/11/17; patient refusing to continue w / Consta at this time -Individual and group therapy -Obtain collateral history -Psychoeducation -Dietitian referral -Physical Therapy -Disposition planning Discussed with Family/SO: No Was Patient/Family/SO present at Treatment Team Meeting: Yes Treatment Plan Review - Problem Delusions Date Initiated: 08/03/17 Time Initiated: 04:46 Progress toward outcomes: unchanged (Pt continues to exhibit paranoia and refusing for staff members to contact her family anotify them of seth. Pt is guarded and vague with her responses. When asked if she believes there are warms inside her, pt stated "I don't have the answer for that.") Alteration in emotional status Date Initiated: 08/03/17 Time Initiated: 04:46 Progress toward outcomes: unchanged - Discharge / Continuing Care Discharge to:: Home Behavioral Health Services: Partial hospital Health Needs: Follow up care/test, Doctor appointments, Nutritional, Medications /Rx, Educational, Recreational/Social
[2017-08-15] MEDS: Risperidone M TAB 2 MG PO SCH (21:26)
--- NOTE | 2017-08-16 08:58 | PCM.PYCHPN ---
Psychiatric Progress Note - Psychiatric Progress Note Patient seen today, length of contact: Patient evaluated, case discussed with team, chart reviewed Patient Chief Complaint: "I don't know if I will make it until tomorrow." Problems Identified/Issues Discussed: Patient is paranoid that some harm unspecific harm may come to her and is uncertain if she will live until tomorrow. She continues to be delusional and somatically preoccupied. She has ideas of reference and believes that normal events that take place, such as staff getting lunch is related to her in some way. She is agreeable to increasing the Risperdal at this time. No adverse effects to medications reported. Medication Change: Yes (Increase Risperdal) Medical Record Reviewed: Yes Consults ordered or reviewed: Medicine consult, Dietitian referral, PT Mental Status Examination - Cognitive Function Orientation: Person, Place, Situation, Time Memory: Impaired Attention: WNL Concentration: WNL Association: WN Fund of Knowledge: [facility] Decription of patient's judgement and insights: Poor I/J - Mood Mood: Depressed, Anxious - Affect Affect: Constricted - Speech Speech: Soft - Formal Thought Process Formal Thought Process: Delusions, Paranoia, Loosening of associations, Flight of ideas, Circumstantial Psychotic Thoughts and Behaviors: +Delusions/paranoia/somatic preoccupation - Suicidal Ideation Suicidal Ideation: No - Homicidal Ideation Homicidal Ideation: No Goal/Treatment Plan - Goal/Treatment Plan Need for Continued Stay: Remain at risks for inpatient hospitalization, Discharge may exacerbated symptoms, Severe functional impairment Progress Toward Problem(s) and Goals/Treatment Plan: Schizophrenia; patient needs acute inpatient hospitalization for treatment and safety -Increase Risperdal to 1 mg PO AM/ 4 mg PO HS -Risperdal Consta 25 mg IM once given on 08/11/17; patient refusing to continue w / Consta at this time -Individual and group therapy -Obtain collateral history -Psychoeducation -Dietitian referral -Physical Therapy -Disposition planning Estimated Date of D/C: 08/21/17
[2017-08-16] MEDS: Risperidone M TAB 2 MG PO SCH (21:08)
--- NOTE | 2017-08-17 11:48 | PCM.PYCHPN ---
Psychiatric Progress Note - Psychiatric Progress Note Patient seen today, length of contact: Patient evaluated, case discussed with team, chart reviewed Patient Chief Complaint: "I scared." Problems Identified/Issues Discussed: Patient continues to be paranoid, talks in a whisper and is minimally cooperative with speaking with technical publications writer today. She did speak with her brother yesterday and allowed the SW to discuss her case w/ him. She continues to be somatically preoccupied. She feels hopeless and depressed. We discussed starting treatment with an antidepressant, but she is not agreeable at this time. No adverse effects to medications reported. Medication Change: No Medical Record Reviewed: Yes Consults ordered or reviewed: Medicine consult, Dietitian referral, PT Mental Status Examination - Cognitive Function Orientation: Person, Place, Situation, Time Memory: Impaired Attention: WNL Concentration: WNL Association: WNL Fund of Knowledge: [facility] Decription of patient's judgement and insights: Poor I/J - Mood Mood: Depressed, Anxious - Affect Affect: Constricted - Speech Speech: Soft - Formal Thought Process Formal Thought Process: Delusions, Paranoia, Loosening of associations, Flight of ideas, Circumstantial Psychotic Thoughts and Behaviors: +Delusions/paranoia/somatic preoccupation - Suicidal Ideation Suicidal Ideation: No - Homicidal Ideation Homicidal Ideation: No Goal/Treatment Plan - Goal/Treatment Plan Need for Continued Stay: Remain at risks for inpatient hospitalization, Discharge may exacerbated symptoms, Severe functional impairment Progress Toward Problem(s) and Goals/Treatment Plan: Schizophrenia; patient needs acute inpatient hospitalization for treatment and safety -Continue Risperdal 1 mg PO AM/ 4 mg PO HS; will continue to titrate if patient is agreeable -Risperdal Consta 25 mg IM once given on 08/11/17; patient refusing to continue w / Consta at this time -Individual and group therapy -Obtain collateral history -Psychoeducation -Dietitian referral -Physical Therapy -Disposition planning Estimated Date of D/C: 08/21/17
[2017-08-17] MEDS: Risperidone M TAB 2 MG PO SCH (21:17)
--- NOTE | 2017-08-18 13:53 | PCM.PYCHPN ---
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/ Medication Change: No Medical Record Reviewed: Yes Mental Status Examination - Cognitive Function Orientation: Person, Place, Situation, Time Memory: Impaired Attention: WNL Concentration: WNL Association: WNL Fund of Knowledge: WNL - Mood Mood: Depressed, Anxious - Affect Affect: Constricted - Speech Speech: Soft - Formal Thought Process Formal Thought Process: Delusions, Paranoia, Flight of ideas, Circumstantial - Suicidal Ideation Suicidal Ideation: No - Homicidal Ideation Homicidal Ideation: No Goal/Treatment Plan - Goal/Treatment Plan Need for Continued Stay: Remain at risks for inpatient hospitalization, Discharge may exacerbated symptoms, Severe functional impairment Progress Toward Problem(s) and Goals/Treatment Plan: continue current medications group and supportive therapy Estimated Date of D/C: 08/21/17
[2017-08-18] MEDS: Risperidone M TAB 2 MG PO SCH (21:20)
--- NOTE | 2017-08-19 10:39 | PCM.PYCHPN ---
Psychiatric Progress Note - Psychiatric Progress Note Patient seen today, length of contact: Patient evaluated, case discussed with team, chart reviewed Patient Chief Complaint: I think the risperidone gave me night haji Problems Identified/Issues Discussed: pt seen in bed superficially cooperative, guarded evasive , arguing about the need to take risperidone stated she thinks medication gives her night haji reported about her discharge and possibility of loosing her current residence as she cannot pay for it , constricted affect, pt also appears to be preoccupied with her weight, and possible weight gain with the medications circumstantial thought process, denied any current suicidal or homicidal ideations denied perceptual disturbances DSM 5 Symptoms Update: psychosis eating disorder Medication Change: No Medical Record Reviewed: Yes Mental Status Examination - Cognitive Function Orientation: Person, Place, Situation, Time Memory: Impaired Attention: WNL Concentration: WNL Association: WNL Fund of Knowledge: WNL - Mood Mood: Depressed, Anxious - Affect Affect: Constricted - Speech Speech: Soft - Formal Thought Process Formal Thought Process: Delusions, Paranoia, Flight of ideas, Circumstantial - Suicidal Ideation Suicidal Ideation: No - Homicidal Ideation Homicidal Ideation: No Goal/Treatment Plan - Goal/Treatment Plan Need for Continued Stay: Remain at risks for inpatient hospitalization, Discharge may exacerbated symptoms, Severe functional impairment Progress Toward Problem(s) and Goals/Treatment Plan: continue current medications group and supportive therapy Estimated Date of D/C: 08/21/17
[2017-08-19] MEDS: Risperidone M TAB 2 MG PO SCH (21:06)
--- NOTE | 2017-08-20 10:41 | PCM.PYCHPN ---
Psychiatric Progress Note - Psychiatric Progress Note Patient seen today, length of contact: Patient evaluated, case discussed with team, chart reviewed Patient Chief Complaint: "I'm worried my eating affects other people." Problems Identified/Issues Discussed: Patient is starting to improve clinically. She has broader range of affect and has more insight that some of her thoughts are paranoid and psychotic. She continues to be somatically preoccupied. She continues to have ideas of references and believes that what she eats may affect others. She is also very concerned about people becoming upset with her, despite reassurance from staff that she has not done anything wrong. We discussed continued titration of Risperdal. No adverse effects to medications reported. Medication Change: Yes (Increase Risperdal to 2 mg PO AM/ 4 mg PO HS in the AM) Medical Record Reviewed: Yes Consults ordered or reviewed: Medicine consult, Dietitian referral, PT Mental Status Examination - Cognitive Function Orientation: Person, Place, Situation, Time Memory: Intact Attention: WNL Concentration: WNL Association: WNL Fund of Knowledge: WN Decription of patient's judgement and insights: Improving I/J - Mood Mood: Anxious - Affect Affect: Broad - Speech Speech: Soft - Formal Thought Process Formal Thought Process: Delusions, Paranoia Psychotic Thoughts and Behaviors: +Somatically preoccupied/ delusions/ IOR/ paranoia - Suicidal Ideation Suicidal Ideation: No - Homicidal Ideation Homicidal Ideation: No Goal/Treatment Plan - Goal/Treatment Plan Need for Continued Stay: Remain at risks for inpatient hospitalization, Discharge may exacerbated symptoms, Severe functional impairment Progress Toward Problem(s) and Goals/Treatment Plan: Schizophrenia; patient needs acute inpatient hospitalization for treatment and safety -Continue Risperdal 1 mg PO AM/ 4 mg PO HS; will increase tomorrow to 2 mg PO AM / 4 mg PO HS -Risperdal Consta 25 mg IM once given on 08/11/17; patient refusing to continue w / Consta at this time -Individual and group therapy -Obtain collateral history -Psychoeducation -Dietitian referral -Physical Therapy -Disposition planning Estimated Date of D/C: 08/24/17
[2017-08-20] MEDS: Risperidone M TAB 2 MG PO SCH (21:32)
--- NOTE | 2017-08-21 09:12 | PCM.PYCHPN ---
Psychiatric Progress Note - Psychiatric Progress Note Patient seen today, length of contact: Patient evaluated, case discussed with team, chart reviewed Patient Chief Complaint: "I'm worried something bad may happen." Problems Identified/Issues Discussed: Patient continues to have brighter and broader range of affect. She continues to have paranoid thoughts and does not want to discuss some of her thoughts with the ticket writer because she is aware that they seem odd. She does report that she feels in danger. She denies SI/AH/VH. She continues to be somatically preoccupied. No adverse effects to medications reported. Medication Change: Yes (Increase Risperdal to 2 mg PO AM/ 4 mg PO HS) Medical Record Reviewed: Yes Consults ordered or reviewed: Medicine consult, Dietitian referral, PT Mental Status Examination - Cognitive Function Orientation: Person, Place, Situation, Time Memory: Intact Attention: WNL Concentration: WNL Association: WNL Fund of Knowledge: [facility] Decription of patient's judgement and insights: Improving I/J - Mood Mood: Anxious - Affect Affect: Broad - Speech Speech: Soft - Formal Thought Process Formal Thought Process: Delusions, Paranoia Psychotic Thoughts and Behaviors: +Somatically preoccupied/ delusions/ IOR/ paranoia - Suicidal Ideation Suicidal Ideation: No - Homicidal Ideation Homicidal Ideation: No Goal/Treatment Plan - Goal/Treatment Plan Need for Continued Stay: Remain at risks for inpatient hospitalization, Discharge may exacerbated symptoms, Severe functional impairment Progress Toward Problem(s) and Goals/Treatment Plan: Schizophrenia; patient needs acute inpatient hospitalization for treatment and safety -Increase Risperdal to 2 mg PO AM/ 4 mg PO HS -Risperdal Consta 25 mg IM once given on 08/11/17; patient refusing to continue w / Consta at this time -Individual and group therapy -Obtain collateral history -Psychoeducation -Dietitian referral -Physical Therapy -Disposition planning Estimated Date of D/C: 08/24/17
[2017-08-21] MEDS: Risperidone M TAB 2 MG PO SCH (21:06)
--- NOTE | 2017-08-22 07:44 | PCM.PYCHPN ---
Psychiatric Progress Note - Psychiatric Progress Note Patient seen today, length of contact: Patient evaluated, case discussed with team, chart reviewed Patient Chief Complaint: "It's better that I keep some things to myself." Problems Identified/Issues Discussed: Patient continues to have brighter and broader range of affect. She has improved hygiene, is out of bed more, eats more and is engaging more appropriately with others. She continues to be guarded with creative services writer and will not share some of her paranoid thoughts, likely because she has improved insight in that they may seem odd to others. No adverse effects to medications reported. NO SI/HI/AH/VH. Medication Change: No Medical Record Reviewed: Yes Consults ordered or reviewed: Medicine consult, Dietitian referral, PT Mental Status Examination - Cognitive Function Orientation: Person, Place, Situation, Time Memory: Intact Attention: WNL Concentration: WNL Association: WNL Fund of Knowledge: WN Decription of patient's judgement and insights: Improving I/J - Mood Mood: Anxious - Affect Affect: Broad - Speech Speech: Soft - Formal Thought Process Formal Thought Process: Paranoia Psychotic Thoughts and Behaviors: +Paranoia - Suicidal Ideation Suicidal Ideation: No - Homicidal Ideation Homicidal Ideation: No Goal/Treatment Plan - Goal/Treatment Plan Need for Continued Stay: Remain at risks for inpatient hospitalization, Discharge may exacerbated symptoms, Severe functional impairment Progress Toward Problem(s) and Goals/Treatment Plan: Schizophrenia; patient needs acute inpatient hospitalization for treatment and safety -Continue Risperdal 2 mg PO AM/ 4 mg PO HS -Risperdal Consta 25 mg IM once given on 08/11/17; patient refusing to continue w / Consta at this time -Individual and group therapy -Obtain collateral history -Psychoeducation -Dietitian referral -Physical Therapy -Disposition planning Estimated Date of D/C: 08/24/17
--- NOTE | 2017-08-22 12:34 | PCM.BM ---
Treatment Plan Problems - Problems identified on initial assessmt Delusions Date Initiated: 08/04/17 (t) Time Initiated: :46 Assessment reference: NA Status: Active Alteration in emotional status Date Initiated: 08/04/17 Time Initiated: :46 Assessment reference: NA Status: Active Treatment assets and liabiliti Patient Assests: educated Patient Liabilities: live alone, poor support system, dietary restrictions, other (acute psychosis affecting food/fluid intake) - Milieu Protocol Maintain good personal hygiene: every other day Encourage regular showers, every shift Remind patient to perform daily oral care, every shift Assist patient to perform ADL's (requires assistance) Conduct patient checks and document Observation sheet: 1:1 Maintain personal safety: every shift Educate patient to report safety concerns to staff, every shift Monitor environment for contraband/sharps Medication safety: Monitor for expected outcome, potential side effects: every shift, Assess barriers to learning: every shift, Assess readiness for medication education: every shift Milieu Narrative: Schizophrenia; patient needs acute inpatient hospitalization for treatment and safety -Continue Risperdal 2 mg PO AM/ 4 mg PO HS -Risperdal Consta 25 mg IM once given on 08/11/17; patient refusing to continue w / Consta at this time -Individual and group therapy -Obtain collateral history -Psychoeducation -Dietitian referral -Physical Therapy -Disposition planning Family Contact Family involvement: Patient does not wish Family/SO involvement Family contact: Patient declines to allow family contact at present Family contact comment: Pt refusing to provide collateral information. - Goals for Treatment Patient goals for treatment: Pt to be encouraged to attend activity and clinical groups 3-5x per week to decrease symptoms of paranoia, delusions and employ reality testing. Pt to be encouraged to participate in group milieu to develop coping skills to reduce psychiatric hospitalizations and further decompensation. Coordinate discharge resources needs by providing referral for psychiatric treatment follow up in the community. Discharge/Continuing Care - Education Needs Education Needs: Patient Medication, Patient Diagnosis/Disease Process, Patient Coping Skills, Patient Anger Management skills, Patient Placement options, Patient Community resources, Patient Uses of Medical Equipment, Patient Health Practices/Safety, Patient Personal Hygiene/Grooming, Patient Aftercare Safety Plan - Discharge Discharge Criteria: Tolerates medication w/o severe side effects, Free of paranoid thoughts, Normal sleep pattern, Ability to care for self, Reduction of target symptoms Discharge to:: Home - Additional Comments 02/21/18 15:48 Pt seen and discussed in team meeting. Reason for admission reviewed and discussed. Pt reported at home she was not eating, not drinking, not sleeping, and "felt like something was coming out of my butt." Pt reported she believes she saw warms coming out of her rectum. Pt reported this has been happening since March 2017. When asked what happened in March 2017 pt stated "everything just changed." Pt was guarded and evasive with her responses. Pt reported seeing her father then and "felt like he didn't like me very much" "more than the others." Pt also reported that in March 2017 she stopped working. 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 Pt reported she abruptly quit her job and has been living off her savings since then. Pt reported that she is unsure if her rent has been paid to date or not. Pt reported significant weight loss since March 2017. Pt reported she was 115lbs then and currently pt weights 82lbs. Pt reported hx of psychiatric treatment " on and off" but nothing current. Pt's medications reviewed and discussed.Pt's social and emotional support reviewed. Pt reported she would like "to hold off" on poem writer contacting her family. Pt refused to sign release form for family. Treatment plan reviewed and discussed with pt. Pt refused to sign team attendance sheet stating "I would like to hold off on it." - Treatment Team Participation Patient/Family/SO Statement: Schizophrenia; patient needs acute inpatient hospitalization for treatment and safety -Continue Risperdal 2 mg PO AM/ 4 mg PO HS -Risperdal Consta 25 mg IM once given on 08/11/17; patient refusing to continue w / Consta at this time -Individual and group therapy -Obtain collateral history -Psychoeducation -Dietitian referral -Physical Therapy -Disposition planning Discussed with Family/SO: No Was Patient/Family/SO present at Treatment Team Meeting: Yes Treatment Plan Review - Problem Delusions Date Initiated: 08/03/17 Time Initiated: 04:46 Progress toward outcomes: improved (Pt is guarded and continues to present with some paranoia. Pt does not wish to discuss some of her thoughts stating that they might seem weird and bizarre to us (interdisciplinary team). Pt presents with increased insight into illness and her bx's. Pt at times displays ideas of reference and continuously apologizes to staff for her thoughts and bx. Pt is worried that people will not forgive her.) Alteration in emotional status Date Initiated: 08/03/17 Time Initiated: 04:46 Progress toward outcomes: improved - Discharge / Continuing Care Discharge to:: Home, With Family, Other (Pt reported that when she initially spoke to her brotherMohan that he agreed for pt to relocate to [place] and stay with him for some time. Pt reported she is unsure if that is still a possibility as pt's brother has not answered her telephone calls recently.) Behavioral Health Services: Partial hospital, Intensive Outpatient Health Needs: Follow up care/test, Doctor appointments, Nutritional, Medications /Rx, Educational
[2017-08-22] MEDS: Lactulose 10 gm/15 ml Syrup PO PRN (14:19)
[2017-08-22] MEDS ORDERED: Bisacodyl 5mg EC Tab PO ONE (17:37)
--- NOTE | 2017-08-23 08:52 | PCM.PYCHPN ---
Psychiatric Progress Note - Psychiatric Progress Note Patient seen today, length of contact: Patient evaluated, case discussed with team, chart reviewed Patient Chief Complaint: "It's better that I keep some things to myself." Problems Identified/Issues Discussed: Patient continues to have brighter and broader range of affect. She has improved hygiene, is out of bed more, eats more and is engaging more appropriately with others. She continues to be paranoid w/ somatic preoccupations. Patient encouraged to continue taking Risperdal Consta, but she is not agreeable at this time. She is only agreeable to taking PO medications. No adverse effects to medications reported. NO SI/HI/AH/VH. Medication Change: No Medical Record Reviewed: Yes Consults ordered or reviewed: Medicine consult, Dietitian referral, PT Mental Status Examination - Cognitive Function Orientation: Person, Place, Situation, Time Memory: Intact Attention: WNL Concentration: WNL Association: WNL Fund of Knowledge: [facility] Decription of patient's judgement and insights: Improving I/J - Mood Mood: Anxious - Affect Affect: Broad - Speech Speech: Soft - Formal Thought Process Formal Thought Process: Paranoia, Other (Somatic preoccupation) Psychotic Thoughts and Behaviors: +Paranoia - Suicidal Ideation Suicidal Ideation: No - Homicidal Ideation Homicidal Ideation: No Goal/Treatment Plan - Goal/Treatment Plan Need for Continued Stay: Remain at risks for inpatient hospitalization, Discharge may exacerbated symptoms, Severe functional impairment Progress Toward Problem(s) and Goals/Treatment Plan: Schizophrenia; patient needs acute inpatient hospitalization for treatment and safety -Continue Risperdal 2 mg PO AM/ 4 mg PO HS -Risperdal Consta 25 mg IM once given on 08/11/17; patient refusing to continue w / Consta at this time -Individual and group therapy -Obtain collateral history -Psychoeducation -Dietitian referral -Physical Therapy -Disposition planning Estimated Date of D/C: 08/25/17
--- NOTE | 2017-08-24 12:29 | PCM.PYCHPN ---
Psychiatric Progress Note - Psychiatric Progress Note Patient seen today, length of contact: Patient evaluated, case discussed with team, chart reviewed Patient Chief Complaint: "I'm okay." Problems Identified/Issues Discussed: Patient continues to be somatically preoccupied, but she is less paranoid. Patient continues to have brighter and broader range of affect. She has improved hygiene, is out of bed more, eats more and is engaging more appropriately with others. Patient encouraged to continue taking Risperdal Consta, but she is not agreeable at this time. She is only agreeable to taking PO medications. No adverse effects to medications reported. NO SI/HI/AH/VH. Medication Change: No Medical Record Reviewed: Yes Consults ordered or reviewed: Medicine consult, Dietitian referral, PT Mental Status Examination - Cognitive Function Orientation: Person, Place, Situation, Time Memory: Intact Attention: WNL Concentration: WNL Association: WNL Fund of Knowledge: [facility] Decription of patient's judgement and insights: Improving I/J - Mood Mood: Anxious - Affect Affect: Broad - Speech Speech: Soft - Formal Thought Process Formal Thought Process: Paranoia, Other (Somatic preoccupation) Psychotic Thoughts and Behaviors: +Paranoia - Suicidal Ideation Suicidal Ideation: No - Homicidal Ideation Homicidal Ideation: No Goal/Treatment Plan - Goal/Treatment Plan Need for Continued Stay: Remain at risks for inpatient hospitalization, Discharge may exacerbated symptoms, Severe functional impairment Progress Toward Problem(s) and Goals/Treatment Plan: Schizophrenia; patient needs acute inpatient hospitalization for treatment and safety -Continue Risperdal 2 mg PO AM/ 4 mg PO HS -Risperdal Consta 25 mg IM once given on 08/11/17; patient refusing to continue w / Consta at this time -Individual and group therapy -Obtain collateral history -Psychoeducation -Dietitian referral -Physical Therapy -Disposition planning Estimated Date of D/C: 08/27/17
--- NOTE | 2017-08-25 07:20 | PCM.PYCHPN ---
Psychiatric Progress Note - Psychiatric Progress Note Patient seen today, length of contact: Patient evaluated, case discussed with team, chart reviewed Patient Chief Complaint: "I'm okay." Problems Identified/Issues Discussed: Patient is improving clinically. She is less somatically preoccupied and less paranoid. She has broader range of affect, improved hygiene and appetite. Patient encouraged to continue taking Risperdal Consta, but she is not agreeable at this time. She is only agreeable to taking PO medications. No adverse effects to medications reported. NO SI/HI/AH/VH. Medication Change: No Medical Record Reviewed: Yes Consults ordered or reviewed: Medicine consult, Dietitian referral, PT Mental Status Examination - Cognitive Function Orientation: Person, Place, Situation, Time Memory: Intact Attention: WNL Concentration: WNL Association: WNL Fund of Knowledge: [facility] Decription of patient's judgement and insights: Fair I/J - Mood Mood: Anxious - Affect Affect: Broad - Speech Speech: Soft - Formal Thought Process Formal Thought Process: Other (Somatic preoccupation) Psychotic Thoughts and Behaviors: +Somatic preoccupation - Suicidal Ideation Suicidal Ideation: No - Homicidal Ideation Homicidal Ideation: No Goal/Treatment Plan - Goal/Treatment Plan Need for Continued Stay: Remain at risks for inpatient hospitalization, Discharge may exacerbated symptoms, Severe functional impairment Progress Toward Problem(s) and Goals/Treatment Plan: Schizophrenia; patient needs acute inpatient hospitalization for treatment and safety -Continue Risperdal 2 mg PO AM/ 4 mg PO HS -Risperdal Consta 25 mg IM once given on 08/11/17; patient refusing to continue w / Consta at this time -Individual and group therapy -Obtain collateral history -Psychoeducation -Dietitian referral -Physical Therapy -Disposition planning Estimated Date of D/C: 08/28/17
--- NOTE | 2017-08-26 11:28 | PCM.PYCHPN ---
Psychiatric Progress Note - Psychiatric Progress Note Patient seen today, length of contact: Patient evaluated, case discussed with team, chart reviewed Patient Chief Complaint: "I'm okay." Problems Identified/Issues Discussed: Patient is improving clinically. She denies current paranoia and has less somatic preoccupation. She has broader range of affect, improved hygiene and appetite. Patient encouraged to continue taking Risperdal Consta, but she is not agreeable at this time. She is only agreeable to taking PO medications. No adverse effects to medications reported. NO SI/HI/AH/VH. Medication Change: No Medical Record Reviewed: Yes Consults ordered or reviewed: Medicine consult, Dietitian referral, PT Mental Status Examination - Cognitive Function Orientation: Person, Place, Situation, Time Memory: Intact Attention: WNL Concentration: WNL Association: WNL Fund of Knowledge: [facility] Decription of patient's judgement and insights: Fair I/J - Mood Mood: Anxious - Affect Affect: Broad - Speech Speech: Soft - Formal Thought Process Formal Thought Process: Other (Somatic preoccupation) Psychotic Thoughts and Behaviors: NO AH/VH/paranoia - Suicidal Ideation Suicidal Ideation: No - Homicidal Ideation Homicidal Ideation: No Goal/Treatment Plan - Goal/Treatment Plan Need for Continued Stay: Remain at risks for inpatient hospitalization, Discharge may exacerbated symptoms, Severe functional impairment Progress Toward Problem(s) and Goals/Treatment Plan: Schizophrenia; patient needs acute inpatient hospitalization for treatment and safety -Continue Risperdal 2 mg PO AM/ 4 mg PO HS -Risperdal Consta 25 mg IM once given on 08/11/17; patient refusing to continue w / Consta at this time -Individual and group therapy -Psychoeducation -Dietitian referral -Physical Therapy -Disposition planning Estimated Date of D/C: 08/28/17
--- NOTE | 2017-08-27 09:41 | PCM.PYCHPN ---
Psychiatric Progress Note - Psychiatric Progress Note Patient seen today, length of contact: Patient evaluated, case discussed with team, chart reviewed Patient Chief Complaint: "I'm okay." Problems Identified/Issues Discussed: Patient continues to improve clinically. She denies current paranoia or somatic preoccupation. We discussed likely discharge tomorrow and psychoeducation was provided on the importance of compliance with treatment and medications. Patient is not agreeable to taking a long acting injectable, but is agreeble to continuing to take PO Risperdal. No adverse effects to medications reported. NO SI/HI/AH/VH. Medication Change: No Medical Record Reviewed: Yes Consults ordered or reviewed: Medicine consult, Dietitian referral, PT Mental Status Examination - Cognitive Function Orientation: Person, Place, Situation, Time Memory: Intact Attention: WNL Concentration: WNL Association: WNL Fund of Knowledge: [facility] Decription of patient's judgement and insights: Fair I/J - Mood Mood: Anxious - Affect Affect: Broad - Speech Speech: Soft - Formal Thought Process Formal Thought Process: No Impairment Psychotic Thoughts and Behaviors: NO AH/VH/paranoia - Suicidal Ideation Suicidal Ideation: No - Homicidal Ideation Homicidal Ideation: No Goal/Treatment Plan - Goal/Treatment Plan Need for Continued Stay: Discharge may exacerbated symptoms Progress Toward Problem(s) and Goals/Treatment Plan: Schizophrenia; patient is improving clinically and will likely be discharged tomorrow. -Continue Risperdal 2 mg PO AM/ 4 mg PO HS -Individual and group therapy -Psychoeducation -Dietitian referral -Physical Therapy -Disposition planning Estimated Date of D/C: 08/28/17
[2017-08-27 21:20] VITALS: RESP 18
[2017-08-28 06:11] VITALS: BP 100/62; PULSE 72; TEMP 97.7
--- NOTE | 2017-08-28 08:23 | PCM.PYCHDC ---
Mental Status Examination - Mental Status Examination Orientation: Person, Place, Situation, Time Memory: Intact Mood: Neutral Affect: Broad Speech: Appropriate Attention: WNL Concentration: WNL Association: WNL Fund of Knowledge: WNL Formal Thought Process: No Impairment Description of patient's judgement and insight: Fair I/J Psychotic Thoughts and Behaviors: NO AH/VH/paranoia Suicidal Ideation: No Current Homicidal Ideation?: No Discharge Summary - Discharge Note Reason for Hospitalization: 42 yo female admitted w/ bizarre behavior, delusions that she had worms in her rectum and shifting through her own feces, somatic preoccupation and paranoia, poor sleep, poor appetite w/ significant weight loss. Consultations:: List each consultation separately and include: 1. Reason for request. 2. Findings. 3. Follow-up Consultations: Medicine consult, Dietitian referral, PT Summary of Hospital Course include:: 1. Description of specific treatment plan utilized for patients during their course of treatmen. 2. Summarize the time- course for resolution of acute symptoms and/or regressed behaviors. 3. Describe issues identified and worked on during hospitalization. 4. Describe medication utilized. 5. Describe medical problems identified and treated. 6. Reassessment of suicide risk Summary of Hospital Course: Patient was admitted to the psychiatry unit. Individual and group therapy were provided. Patient was stabilized on Risperdal 2 mg PO AM/ 4 mg PO HS. Patient was not agreeable to treatment with a long acting injectable. She was seen by the dietitian who recommended supplements to improve her weight and nutritional status. Psychoeducation provided on the importance of compliance with treatment and medications. She is now psychiatrically stable for discharge. - Diagnosis (1) Schizophrenia Current Visit: Yes Status: Chronic - Final Diagnosis (DSM 5) Condition upon Discharge: STABLE DSM 5: Schizophrenia Disposition: HOME/ ROUTINE Follow-up Treatment Plan: Schizophrenia -Continue Risperdal 2 mg PO AM/ 4 mg PO HS Prescriptions/Medication Reconciliation: Docusate [Colace] 100 mg PO BID #60 cap Risperidone 2 mg PO ASDIR #90 tablet - Smoking Cessation Smoking Cessation Medication prescribed: No Reason for not providing: Not indicated - Antipsychotic Medications Pt discharged on 2 or more routine antipsychotic medications: No
== END 2017-08-28 10:30 | disposition home or self-care (01) | DRG 430 ==
LOC: H.ER 17:31 → H.ERHOLD 20:49 → H.PSYCH 08-04 00:39 → H.STEP 08-06 15:02
PROVIDERS: ADMIT Psychiatry & Neurology Psychiatry; ATTEND Psychiatry & Neurology Psychiatry
PROC: GZ51ZZZ Individual Psychotherapy, Behavioral (ICD-10-PCS; 2017-08-03)
PROC: GZHZZZZ Group Psychotherapy (ICD-10-PCS; principal; 2017-08-13)
DX: F20.0 Paranoid schizophrenia (principal); F50.9 Eating disorder, unspecified; F31.9 Bipolar disorder, unspecified; Z79.899 Other long term (current) drug therapy; F45.9 Somatoform disorder, unspecified; R15.9 Full incontinence of feces; R19.7 Diarrhea, unspecified